=== PATIENT | female | born 1990 | race Caucasian/White ===

== ENCOUNTER 2019-01-04 12:02 | Inpatient (IN) | payer MEDICAID, OTHER, SELFPAY ==
[2019-01-04 12:31] VITALS: BMI 35.2
[2019-01-04] MEDS ORDERED: Butorphanol Tartrate 1 MG/ML VIAL SLOW IVP PRN (12:54)
[2019-01-04] MEDS ORDERED: Acetaminophen 500 MG TAB PO PRN (12:54)
[2019-01-04] MEDS ORDERED: Ondansetron PF 4 MG/2 ML Vial IVP PRN (12:54)
[2019-01-04] MEDS ORDERED: Ibuprofen 800 MG TAB PO PRN (12:54)
[2019-01-04] MEDS ORDERED: Lidocaine 1% (PF) 30 ML VIAL SC PRN (12:54)
[2019-01-04] MEDS ORDERED: NS / Oxytocin 40 units/1000ml 1,000 ML IV PRN (12:54)
[2019-01-04] MEDS ORDERED: Docusate 100 MG CAP PO PRN (12:54)
[2019-01-04] MEDS ORDERED: Promethazine HCl 25 MG/ML VIAL IM PRN (12:54)
[2019-01-04] MEDS ORDERED: Lactated Ringer's 1,000 ML IV SCH (13:00)
--- NOTE | 2019-01-04 13:01 | PDOC.LDHP ---
Labor and Delivery H&P Chief complaint: contractions, loss of fluid HPI: 28 yo @ 40.2 by 12.6US presents for LOF. Pt reports rupture @ approx 10am and contractions started 1 hour after. Currently reports painful contractions q3 min. Denies NVDC, CP, SOB, vaginal bleeding and reports pos movement. Current gestational age (weeks): 40 (40+2) Due date: 01/02/19 Dating criteria: first trimester ultrasound Grav: 2 Para: 1 Current complications: none Current medications: pre-chayito vitamins Previous surgical history: none Allergies/Adverse Reactions: Allergies Allergy/AdvReac Type Severity Reaction Status Date / Time No Known Allergies Allergy Verified 01/04/19 12:33 Social history: none - Physical Exam Vital signs reviewed and normal: yes General: NAD, breathing through contractions Heart: RRR Lungs: CTAB Abdomen: NTTP Extremeties: no edema FHT: category 1 (baseline 150s pos accels, no late or variable decels) [place] contractions every: 3 - Vaginal Exam cm dilated: 4 Effacement: 75% Station: -1 - OB Labs Blood type: O RH: negative Antibody Screen: negative HIV: negative RPR: negative HEPSAg: negative 1 hour GCT: positive 3 hour GTT: WNL GBS: negative Urine drug screen: negative - Assessment L&D Assessment: term rupture in membranes - Plan Plan: admit to L&D, labor augmentation if indicated -: 1) TIUP ROM - grossly ruptured - 4-5cm, admit to L&D -cervical checks q2hr - cat 1 strip pos accels no late or variable decels, CTX q3 min - pt of Dr Richardson will notify pcp Addendum - Attending - Attending Attestation Date/Time: 01/04/19 2427 I personally evaluated the patient and discussed the management with Dr. Araiza. I agree with the History, Examination, Assessment and Plan documented above.
[2019-01-04 13:47] LABS: Mean Corpuscular HGB CONC 32.2 g/dL (32.0-36.0); Mean Corpuscular Hemoglobin 27.7 pg (27.0-31.0); Mean Corpuscular Volume 86.1 fL (78.0-98.0); Platelet Count 158 thou/uL (130-400); Red Blood Cell (RBC) Count 4.35 mill/uL (4.20-5.40); White Blood Cell (WBC) Count 9.5 thou/uL (4.8-10.8)
[2019-01-04 14:23] LABS: Syphilis Antibody Nonreactive (Nonreactive); Syphilis Antibody Index 0.02 S/CO (<1.00 Non-Reactive)
[2019-01-04 14:31] LABS: HBSAg Index 0.32 S/CO (0-0.99); Hep B Surf Ag Non-Reactive S/CO (NonReactive)
--- NOTE | 2019-01-04 15:00 | PDOC.LDPN ---
Labor & Delivery Progress Note - Subjective Subjective: comfortable, vaginal pressure - Objective Vital signs reviewed and normal: yes General: NAD, resting, breathing through contractions Uterine fundus: non tender Dilation: 6 Effacement: 75% Station: -1 FHT: category 2 (150/mod/accels, few variables ) [place] contractions every: 2-4min Plan: continue plan of care -: 1) TIUP ROM - grossly ruptured this AM - 4-5cm now 6/75/-1, CTX 2-4min - cervical checks q2hr - cat 2 strip, two variables -non sustained: 150/mod/accels - continue with plan of care
[2019-01-04] MEDS ORDERED: Preparation H Ointment 28 GM TUBE PR PRN (17:34)
[2019-01-04] MEDS ORDERED: Bisacodyl 10 MG SUPP PR PRN (17:34)
[2019-01-04] MEDS ORDERED: Benzocaine-Menthol 82.5 ML CAN TOP PRN (17:34)
[2019-01-04] MEDS ORDERED: Milk Of Magnesia 30 ML UDCUP PO PRN (17:34)
[2019-01-04] MEDS ORDERED: diphenhydrAMINE 25 MG CAP PO PRN (17:34)
[2019-01-04] MEDS ORDERED: Lanolin Ointment 7 GM TUBE TOP PRN (17:34)
[2019-01-04] MEDS ORDERED: NS / Oxytocin 40 units/1000ml 1,000 ML IV SCH (18:15)
--- NOTE | 2019-01-04 19:55 | PDOC.EVN ---
Event Note - Event Note Event Note: Vaginal Delivery Dictation Guideline Delivering Physician: Debra Dorsey Lemley Attending: Dr. Borrero Procedure: Spontaneous Vaginal Delivery Anesthesia: Local for Repair QBL: 328cc Pre-op Diagnosis: 1. Term intrauterine in labor Post-op Diagnosis: 1. Term intrauterine , delivered Indications: A 28y/o female now presents for SROM. Delivery Note: This is 28yo F now P2 @ 40.2 wks who delivered a viable F infant on 01/04/19 at 1549. Following an uneventful antepartum course, a vigorous (sex) was delivered over an intact perineum in the occiput anterior position. Anterior Shoulder and then remainder of the body delivered. No nuchal cord. The head was held down and mouth and nares were bulb suctioned. Cord clamped and cut and cord blood collected for cord blood bank and laboratory. Placenta delivered intact in the Wong presentation with a 3 vessel cord noted. Fundal massage was performed and the fundus was firm. Second degree perineal laceration noted and repaired with 3-0 vicryl in the usual fashion with good approximation and hemostasis after local lidocaine was injected at site. Infant went to nursery in good condition for routine care. Apgars were 9/9at 1 & 5 minutes, respectively. Patient tolerated delivery well and went to after routine recovery/care.
[2019-01-04] MEDS: Ibuprofen 800 MG TAB PO SCH (22:00)
[2019-01-04] MEDS: Docusate Calcium (SURFAK) 240 MG CAP PO SCH (22:00)
[2019-01-05] MEDS: Ibuprofen 800 MG TAB PO SCH ×3 (05:42→20:58)
--- NOTE | 2019-01-05 06:16 | PDOC.PP ---
Post Progress Note Post Day #: 1 PO intake tolerated: yes Flatus: yes Ambulation: yes Vital Signs (12 hours) Temp Pulse Resp BP Pulse Ox 01/05/19 03:50 98.3 F 104 H 20 109/56 L 98 01/05/19 02:16 97.7 F 01/04/19 23:55 98.7 F 117 H 20 106/58 L 96 01/04/19 21:55 99.4 F 119 H 16 110/56 L 96 01/04/19 20:40 98.7 F 116 H 20 123/71 95 01/04/19 19:45 98.5 F 99 20 119/62 99 Weight Weight 102.058 kg - Physical Examination General: NAD Cardiovascular: no m/r/g, RRR Respiratory: clear to auscultation bilaterally, non-labored breathing Abdominal: + bowel sounds, lochia (Reports like period), no distention, appropriately TTP Fundus firm & at: Umbilicus Extremities: negative homans (B) Perineum: Incision intact. No drainage noted. No swelling Neurological: no gross focal deficits Psychiatric: A&Ox3, normal affect Result Diagrams: 01/04/19 13:38 Additional Labs: Post Labs Blood Type O NEGATIVE 01/04/19 19:49 Hep Bs Antigen Non-Reactive S/CO (NonReactive) 01/04/19 13:38 (1) Status: Acute Qualifiers: Weeks of gestation: 40 weeks Qualified Code(s): Z3A.40 - 40 weeks gestation of (2) Rh negative status during Code(s): O26.899 - OTH RELATED CONDITIONS, UNSPECIFIED TRIMESTER; Z67.91 - UNSPECIFIED BLOOD TYPE, RH NEGATIVE Status: Acute - Assessment/Plan , Day 1 -Term -2nd degree perineal laceration: healing well, some pain -Continue scheduled ibuprofen, dermoplast, stool softener, warm sitz baths -continue routine Post care. Pt will possibly be d/c depending on bili labs of baby Rh negative -Will need rhogam in post period.
[2019-01-05 06:52] LABS: #Lymphocytes 1.5 thou/uL (1.20-3.40); #Monocytes 0.9 thou/uL (0.11-0.59); #Neutrophils 6.9 thou/uL (1.40-6.50); %Basophils 0.1 % (0.0-1.0); %Eosinophils 0.5 % (0.0-10.0); %Lymphocytes 15.9 % (21.0-51.0); %Monocytes 9.5 % (0.0-10.0); Hemoglobin 10.1 g/dL (12.0-16.0); Mean Corpuscular HGB CONC 32.7 g/dL (32.0-36.0); Mean Corpuscular Hemoglobin 28.3 pg (27.0-31.0); Mean Corpuscular Volume 86.8 fL (78.0-98.0); Mean Platelet Volume 9.1 fL (7.4-10.4); Platelet Count 132 thou/uL (130-400); Red Blood Cell (RBC) Count 3.57 mill/uL (4.20-5.40); White Blood Cell (WBC) Count 9.3 thou/uL (4.8-10.8)
[2019-01-05] MEDS: Prenatal Vitamin 1 TAB PO SCH (08:47)
[2019-01-05] MEDS: Docusate Calcium (SURFAK) 240 MG CAP PO SCH ×2 (08:47→20:57)
[2019-01-05] MEDS ORDERED: Adacel (T-DAP) 0.5 ML SYRINGE IM ONE (09:00)
[2019-01-06] MEDS: Ibuprofen 800 MG TAB PO SCH (05:40)
--- NOTE | 2019-01-06 06:53 | PDOC.PP ---
Post Progress Note Post Day #: 2 Subjective: Pt reports doing well. Reports minimal pain and being well controlled. Denies any chest pain or SOB. Denies any swelling. Reports normal lochia. Has been up moving around. tolerating PO. PO intake tolerated: yes Flatus: yes Ambulation: yes Weight Weight 102.058 kg - Physical Examination General: NAD Cardiovascular: no m/r/g, RRR Respiratory: clear to auscultation bilaterally, non-labored breathing Abdominal: + bowel sounds, lochia (Reports the same as her normal period), no distention, appropriately TTP Fundus firm & at: below umbilicus Extremities: negative homans (B) Perineum: Intact, Incision dry. No sign of redness. No sign of drainage Neurological: no gross focal deficits Psychiatric: A&Ox3, normal affect Result Diagrams: 01/05/19 06:33 Additional Labs: Post Labs Blood Type O NEGATIVE 01/04/19 13:38 Hep Bs Antigen Non-Reactive S/CO (NonReactive) 01/04/19 13:38 (1) Status: Acute Qualifiers: Weeks of gestation: 40 weeks Qualified Code(s): Z3A.40 - 40 weeks gestation of (2) Rh negative status during Code(s): O26.899 - OTH RELATED CONDITIONS, UNSPECIFIED TRIMESTER; Z67.91 - UNSPECIFIED BLOOD TYPE, RH NEGATIVE Status: Acute - Assessment/Plan , Day 2 -Term -2nd degree perineal laceration: healing well, some pain. Controlled at this time. -Continue scheduled ibuprofen, dermoplast, stool softener, warm sitz baths -continue routine Post care. -Pt stayed due to baby being ricardo positive. Pt ready for discharge today. f/u in 2 weeks for routine PP visit. Rh negative -Will need rhogam in post period.
[2019-01-06 07:39] VITALS: BP 109/69; TEMP 98.1
[2019-01-06] MEDS: Prenatal Vitamin 1 TAB PO SCH (10:06)
[2019-01-06] MEDS: Docusate Calcium (SURFAK) 240 MG CAP PO SCH (10:07)
== END 2019-01-06 12:23 | disposition home or self-care (01) | DRG 807 ==
LOC: L&D/OP 12:02 → L&D 12:46 → 3SE 21:15
PROVIDERS: ADMIT Obstetrics & Gynecology; ATTEND Obstetrics & Gynecology
PROC: 10E0XZZ Delivery of Products of Conception, External Approach (ICD-10-PCS; principal; 2019-01-04)
PROC: 0KQM0ZZ Repair Perineum Muscle, Open Approach (ICD-10-PCS; 2019-01-04)
DX: O48.0 Post-term pregnancy (principal); Z37.0 Single live birth; O70.1 Second degree perineal laceration during delivery; O26.893 Other specified pregnancy related conditions, third trimester; Z3A.40 40 weeks gestation of pregnancy; Z67.41 Type O blood, Rh negative
CPT/HCPCS: 36415; 85025; 85027; 86780; 86850; 86900; 86901; 87340; 99285; J0595; J2001